=== PATIENT | male | born 1990 | race Caucasian/White ===

== ENCOUNTER 2017-12-03 04:24 | Emergency (ER) | payer BC, OTHER ==
[2017-12-03 05:20] LABS: Urine Blood NEGATIVE (NEG); Urine Glucose NEGATIVE (NEG); Urine Protein NEGATIVE (NEG); Urine Specific Gravity 1.025 (1.005-1.030); Urine pH 5.5 (5.0-7.0)
[2017-12-03 05:25] LABS: Absolute Lymphocytes (CBC) 2.2 K/uL (0.7-4.9); Absolute Monocytes 0.7 K/uL (0.1-1.3); Absolute Neutrophil 3.5 K/uL (1.8-8.0); Basophils % 0.6 % (0-1.3); Eosinophils % 3.1 % (0-4.4); Hematocrit 46.9 % (39.6-49.0); Lymphocytes % 32.4 % (15.3-44.8); MCH 29.3 pg (27.0-35.0); MCV 86.7 fL (80-100); MPV 8.2 fL (7.6-11.3); RBC Red Blood Cell Count 5.41 M/uL (4.33-5.43)
[2017-12-03 05:38] LABS: Urine Bacteria <20 /HPF (NONE SEEN); Urine Culture Reflex Order NOT NEEDED; Urine RBC NONE SEEN /HPF (NONE SEEN)
[2017-12-03 05:58] LABS: Albumin 4.3 g/dL (3.4-5.0); Bilirubin Direct 0.1 mg/dL (0-0.2); Bilirubin Total 0.7 mg/dL (0.2-1.0); Potassium 4.3 mmol/L (3.5-5.1); Protein, Total 7.8 g/dL (6.4-8.2)
[2017-12-03] MEDS ORDERED: KETOROLAC 30 MG/ML INJ ONE (06:14)
--- NOTE | 2017-12-03 06:29 | ER ---
Nurse's Notes [facility] Name: Kevin Simpson Age: 27 yrs Sex: Male : 1990 Arrival Date: 12/03/2017 Time: 04:28 Bed 18 Private MD: Diagnosis: Acute Low Back Pain Presentation: 12/03 04:41 Presenting complaint: Patient states: bilateral flank pain X2 months intermittent. pt ak1 c/o urine having "strong smell" X1 month [employer]. pt denies N/V/D today. Transition of care: patient was not received from another setting of care. Onset of symptoms is unknown. Risk Assessment: Do you want to hurt yourself or someone else? Patient reports no desire to harm self or others. Initial Sepsis Screen: Does the patient meet any 2 criteria? No. Patient's initial sepsis screen is negative. Does the patient have a suspected source of infection? No. Patient's initial sepsis screen is negative. Care prior to arrival: None. 04:41 Method Of Arrival: Ambulatory ak1 04:41 Acuity: CECILE 3 ak1 Triage Assessment: 04:44 General: Appears in no apparent distress. Behavior is calm, cooperative. Pain: ak1 Complains of pain in bilateral flank. EENT: No signs and/or symptoms were reported regarding the EENT system. Neuro: No deficits noted. Cardiovascular: No deficits noted. Respiratory: No deficits noted. GI: Abdomen is flat, Bowel sounds present X 4 quads. : Reports pain in bilateral flank(s). Derm: No signs and/or symptoms reported regarding the dermatologic system. Musculoskeletal: No signs and/or symptoms reported regarding the musculoskeletal system. Historical: - Allergies: 04:44 No Known Allergies; ak1 - Home Meds: 04:44 Adderall XR 40 mg Oral cp24 once daily for Attention-Deficit Hyperactivity Disorder ak1 [Active]; - PMHx: 04:44 ADD/ADHD; ak1 - PSHx: 04:44 right hand sx; nose sx; ak1 - Immunization history:: Adult Immunizations unknown. - Social history:: Smoking status: Patient/guardian denies using tobacco. - Ebola Screening: : No symptoms or risks identified at this time. Screenin:47 Abuse screen: Denies threats or abuse. Denies injuries from another. Nutritional ak1 screening: No deficits noted. Tuberculosis screening: No symptoms or risk factors identified. Fall Risk None identified. Assessment: 05:11 Reassessment: Patient appears in no apparent distress at this time. No changes from ak1 previously documented assessment. Patient and/or family updated on plan of care and expected duration. Pain level reassessed. Patient is alert, oriented x 3, equal unlabored respirations, skin warm/dry/pink. see triage assessment. 05:13 GI: Abd is soft and non tender X 4 quads. ak1 Vital Signs: 04:46 BP 154 / 110; Pulse 75; Resp 18; Temp 98.3(O); Pulse Ox 99% on R/A; Weight 65.77 kg ak1 (R); Height 5 ft. 9 in. (175.26 cm) (R); Pain 9/10; 05:11 BP 129 / 73; Pulse 65; Resp 16; Temp 98.3; Pulse Ox 98% on R/A; ak1 06:28 BP 103 / 53; Pulse 60; Resp 16; Temp 98.1(TE); Pulse Ox 99% on R/A; Pain 0/10; ak1 04:46 Body Mass Index 21.41 (65.77 kg, 175.26 cm) ak1 ED Course: 04:28 Patient arrived in ED. ds1 04:31 Olive Wing, RN is Primary Nurse. ak1 04:31 Jose Francisco Parkinson MD is Attending Physician. wa 04:43 Triage completed. ak1 04:46 Arm band placed on Patient placed in an exam room, on a stretcher, on pulse oximetry, ak1 Patient notified of wait time. 04:46 Patient has correct armband on for positive identification. Bed in low position. Call ak1 light in reach. Side rails up X 1. Pulse ox on. NIBP on. 05:[address] wheelchair. cw1 05:10 Initial lab(s) drawn, by me, sent to lab. Urine collected: clean catch specimen, clear, ak1 Amount Voided: 90mL. Inserted saline lock: 20 gauge in right antecubital area, using aseptic technique. Blood collected. 05:25 CT Abd/Pelvis - Without Cont In Process Unspecified. EDMS 05:25 CT completed. Patient tolerated procedure well. Patient moved back from CT. kw1 06:29 No provider procedures requiring assistance completed. IV discontinued, intact, ak1 bleeding controlled, No redness/swelling at site. Pressure dressing applied. Administered Medications: 06:14 Drug: TORadol 30 mg Route: IVP; Site: right antecubital; ak1 06:30 Follow up: Response: No adverse reaction; Pain is decreased ak1 Outcome: 06:28 Discharge ordered by . debo 06:29 Discharged to home ambulatory. ak1 06:29 Condition: improved 06:36 Discharge instructions given to patient, Instructed on discharge instructions, follow ak1 up and referral plans. no drinking with medication, no driving heavy equipment, medication usage, Demonstrated understanding of instructions, follow-up care, medications, Prescriptions given X 1. 06:36 Patient left the ED. ak1 Signatures: Dispatcher [employer] EDMS [place] cw1 Olive Wing RN RN ak1 Jose Francisco Parkinson MD MD wa Wilhelm, Kimberly kw1
--- NOTE | 2017-12-03 06:29 | EDPHYS ---
Physician Documentation [facility] Name: Kevin Simpson Age: 27 yrs Sex: Male : 1990 Arrival Date: 12/03/2017 Time: 04:28 Bed 18 Private MD: ED Physician Jose Francisco Parkinson HPI: 12/03 05:09 This 27 yrs old Male presents to ER via Ambulatory with complaints of Flank wa Pain, Abdominal Pain. 05:09 The patient complains of pain in the . The patient complains of pain in the left flank wa and right flank. The pain does not radiate. Onset: The symptoms/episode began/occurred 1.5 month(s) ago. Modifying factors: The symptoms are alleviated by nothing. the symptoms are aggravated by nothing. Associated signs and symptoms: Pertinent positives: weakness, Pertinent negatives: diarrhea, dizziness, dysuria, fever. Severity of pain: At its worst the pain was moderate in the emergency department the pain is unchanged. The patient has not experienced similar symptoms in the past. The patient has not recently seen a physician. Historical: - Allergies: 04:44 No Known Allergies; ak1 - Home Meds: 04:44 Adderall XR 40 mg Oral cp24 once daily for Attention-Deficit Hyperactivity Disorder ak1 [Active]; - PMHx: 04:44 ADD/ADHD; ak1 - PSHx: 04:44 right hand sx; nose sx; ak1 - Immunization history:: Adult Immunizations unknown. - Social history:: Smoking status: Patient/guardian denies using tobacco. - Ebola Screening: : No symptoms or risks identified at this time. ROS: 05:10 Constitutional: Negative for fever, chills, and weight loss, Eyes: Negative for injury, wa pain, redness, and discharge, ENT: Negative for injury, pain, and discharge, Neck: Negative for injury, pain, and swelling, Cardiovascular: Negative for chest pain, palpitations, and edema, Respiratory: Negative for shortness of breath, cough, wheezing, and pleuritic chest pain, : Negative for injury, bleeding, discharge, and swelling, MS/Extremity: Negative for injury and deformity, Skin: Negative for injury, rash, and discoloration, Neuro: Negative for headache, weakness, numbness, tingling, and seizure. 05:10 Abdomen/GI: Positive for abdominal pain, back pain, Negative for nausea, vomiting, and diarrhea. 05:10 Back: Positive for pain at rest, pain with movement, flank pain. 05:10 All other systems are negative. Exam: 05:11 Constitutional: This is a well developed, well nourished patient who is awake, alert, wa and in no acute distress. Head/Face: Normocephalic, atraumatic. Eyes: Pupils equal round and reactive to light, extra-ocular motions intact. Lids and lashes normal. Conjunctiva and sclera are non-icteric and not injected. Cornea within normal limits. Periorbital areas with no swelling, redness, or edema. ENT: Nares patent. No nasal discharge, no septal abnormalities noted. Tympanic membranes are normal and external auditory canals are clear. Oropharynx with no redness, swelling, or masses, exudates, or evidence of obstruction, uvula midline. Mucous membranes moist. Neck: Trachea midline, no thyromegaly or masses palpated, and no cervical lymphadenopathy. Supple, full range of motion without nuchal rigidity, or vertebral point tenderness. No Meningismus. Chest/axilla: Normal chest wall appearance and motion. Nontender with no deformity. No lesions are appreciated. Cardiovascular: Regular rate and rhythm with a normal S1 and S2. No gallops, murmurs, or rubs. Normal PMI, no JVD. No pulse deficits. Respiratory: Lungs have equal breath sounds bilaterally, clear to auscultation and percussion. No rales, rhonchi or wheezes noted. No increased work of breathing, no retractions or nasal flaring. Abdomen/GI: Soft, non-tender, with normal bowel sounds. No distension or tympany. No guarding or rebound. No evidence of tenderness throughout. Back: No spinal tenderness. No costovertebral tenderness. Full range of motion. Male : Normal genitalia with no discharge or lesions. Skin: Warm, dry with normal turgor. Normal color with no rashes, no lesions, and no evidence of cellulitis. MS/ Extremity: Pulses equal, no cyanosis. Neurovascular intact. Full, normal range of motion. Neuro: Awake and alert, GCS 15, oriented to person, place, time, and situation. Cranial nerves II-XII grossly intact. Motor strength 5/5 in all extremities. Sensory grossly intact. Cerebellar exam normal. Normal gait. Psych: Awake, alert, with orientation to person, place and time. Behavior, mood, and affect are within normal limits. Vital Signs: 04:46 BP 154 / 110; Pulse 75; Resp 18; Temp 98.3(O); Pulse Ox 99% on R/A; Weight 65.77 kg ak1 (R); Height 5 ft. 9 in. (175.26 cm) (R); Pain 9/10; 05:11 BP 129 / 73; Pulse 65; Resp 16; Temp 98.3; Pulse Ox 98% on R/A; ak1 06:28 BP 103 / 53; Pulse 60; Resp 16; Temp 98.1(TE); Pulse Ox 99% on R/A; Pain 0/10; ak1 04:46 Body Mass Index 21.41 (65.77 kg, 175.26 cm) ak1 MDM: 04:32 Patient medically screened. wy 05:11 Differential diagnosis: nephrolithiasis, pyelonephritis, UTI. Data reviewed: vital wa signs, nurses notes. 06:08 Test interpretation: by ED physician or midlevel provider: labs noted wnl. . wa 06:26 Test interpretation: by ED physician or midlevel provider: labs wnl. CT abd/pelvis: no wa acute proceed. Response to treatment: the patient's symptoms have markedly improved after treatment. 12/03 04:59 Order name: Urine Dipstick--Ancillary (enter results); Complete Time: 06:07 ct 12/03 05:01 Order name: Basic Metabolic Panel; Complete Time: 06:07 wy 12/03 05:01 Order name: CBC with Diff; Complete Time: 06:07 wy 12/03 05:01 Order name: Hepatic Function; Complete Time: 06:07 wy 12/03 05:01 Order name: Lipase; Complete Time: 06:07 wy 12/03 05:01 Order name: Urine Microscopic Only; Complete Time: 06:07 wy 12/03 05:01 Order name: IV Saline Lock; Complete Time: 05:09 wy 12/03 05:01 Order name: Labs collected and sent; Complete Time: 05:09 wy 12/03 05:01 Order name: Urine Dipstick-Ancillary (obtain specimen); Complete Time: 05:09 wy 12/03 05:01 Order name: CT Abd/Pelvis - Without Cont wa Administered Medications: 06:14 Drug: TORadol 30 mg Route: IVP; Site: right antecubital; ak1 06:30 Follow up: Response: No adverse reaction; Pain is decreased ak1 Disposition: 12/03/17 06:28 Discharged to Home. Impression: Acute Low Back Pain. - Condition is Stable. - Prescriptions for ketorolac 10 mg Oral tablet - take 1 tablet by ORAL route every 8 hours not to exceed 40 mg in 24hrs; 15 tablet. - Medication Reconciliation Form, Thank You Letter, Antibiotic Education, Prescription Opioid Use form. - Work release form (12/03/17 06:40). fc - Follow up: Private Physician; When: 5 - 6 days; Reason: Recheck today's complaints. Signatures: Dispatcher [employer] EDOlive Colón RN RN ak1 Jose Francisco Parkinson MD MD wa Chretien, Felicia RN fc Corrections: (The following items were deleted from the chart) 06:36 06:28 12/03/2017 06:28 Discharged to Home. Impression: Acute Low Back Pain. Condition ak1 is Stable. Forms are Medication Reconciliation Form, Thank You Letter, Antibiotic Education, Prescription Opioid Use. Follow up: Private Physician; When: 5 - 6 days; Reason: Recheck today's complaints. wa
--- NOTE | 2017-12-03 07:57 | RAD REPORT ---
EXAM DESCRIPTION: CT - Abdomen Pelvis Wo Contrast - 12/03/2017 6:44 am CLINICAL HISTORY: Abdominal pain nausea vomiting and diarrhea. COMPARISON: September 2016 TECHNIQUE: Computed axial tomography of the abdomen and pelvis was obtained. IV and oral contrast we re not requested. A preliminary report was generated by [email or web address] and reviewed prior to this dictation All CT scans are performed using dose optimization technique as appropriate and may include automated exposure control or mA/KV adjustment according to patient size. FINDINGS: The evaluation of solid organs, vessels and bowel is limited secondary to the lack of con trast administration. The liver, spleen, pancreas, adrenals and kidneys appear grossly normal. The appendix is normal. There is no evidence of diverticulitis. IMPRESSION: No acute abnormality is displayed.
== END 2017-12-03 06:36 | disposition home or self-care (01) ==
LOC: ER 04:24
DX: M54.5 Low back pain (principal); F90.9 Attention-deficit hyperactivity disorder, unspecified type
CPT/HCPCS: 36415; 74176; 80048; 80076; 81003; 81015; 83690; 85025; 96374; 99284